=== PATIENT | male | born 1945 | race Caucasian/White ===

== ENCOUNTER 2017-03-08 14:40 | Emergency (ER) | payer MEDICARE, OTHER ==
[~2017-03-08] VITALS: Ht 175.3 cm; Wt 95.0 kg
[~2017-03-08 14:40] MED LIST: ASPI81TA2 PO; LOVA40TA PO
[2017-03-08 14:56] VITALS: BP 138/77; PULSE 72; RESP 16; O2SAT 97
--- NOTE | 2017-03-08 16:36 | ED.REPORT ---
HPI-URI / Cough / Cold Date of Service March 08, 2017 ED Provider: Sima Barbosa History of Present Illness: feeling good right now. had some nausea with loss of balance earlier around 1 pm today. Slight cough. almost lost voice for a week. ears clogged marcelino right. no hx of cardiac issue. primary care is miguel in [place]. denies sob, no chest pain was seen at and given a zpak and OTC medication Nursing Notes Stated Complaint: VOMITING Chief Complaint: General Complaint Nursing Notes Reviewed: Yes Allergies: Coded Allergies: hydrocodone bitartrate (Verified Allergy, Intermediate, 04/04/13) Scheduled Aspirin-Expunged Drug, Do Not Renew! (Aspirin-Expunged Drug, Do Not Renew!) 81 Mg Tablet 81 MG PO DAILY Miscellaneous Medications Lovastatin-Expunged Drug, Do Not Renew! (Lovastatin-Expunged Drug, Do Not Renew! ) 40 Mg Tablet 40 MG PO General Time Seen by MD: 16:35 Chief Complaint Cough, productive... (none for the last 2 days) Hx Obtained From: Patient Onset Occurred: 1 week ago Symptom Duration: Since onset Past Medical History Past Medical History Reports: Hyperlipidemia, Denies: Asthma Past Surgical History right hip replacement Family History older brother had an [place] Smoking History Never Smoker Social History Alcohol Use: Denies alcohol use Drug Use: Denies drug use Other Social History: Local resident Occupation lives by self, work at at [employer] 03/08/2017 Ambulatory Status Independent Review of Systems Basic Review of Systems Cardiovascular: No chest pain, No dyspnea on exertion, No orthopnea, No parox noct dyspnea, No palpitations Hematologic: No bleeding, No bruising Psychiatric: Normal thought content Physical Exam Initial Vital Signs Vital Signs (First) Date Time Temp Pulse Resp B/P Pulse Ox O2 Delivery O2 Flow Rate FiO2 03/08/17 14:56 36.2 72 16 138/77 97 Room Air Initial VS: Reviewed, Vital signs normal Head / Eyes: Atraumatic, Normocephalic, PERRL Neck: Supple, Non-tender, Full range of motion Cardiovascular: Regular rate & rhythm, Heart sounds normal, Intact distal pulses Abdomen / GI: Soft, Non-tender, No guarding, No rebound, No distention Back: No CVA tenderness Lymphatic: No lymphadenopathy Extremities: Vascular intact, Neuro intact, No swelling, No tenderness Skin: Warm, Dry, No cyanosis Neurologic: Alert, Oriented, Nonfocal Psychiatric: Mood/affect normal, Behavior normal, Normal thought content General/Constitutional: Awake, Alert, No acute distress, Well appearing, Well developed, Well hydrated ENT: Atraumatic, Airway patent, Mucous membranes moist, Pharynx NL, No peritonsillar abscess Respiratory / Chest: Atraumatic, Breath sounds NL, Breath sounds = bilat Head / Eyes: Atraumatic, Normocephalic, PERRL, EOMI Cardiovascular: Heart rate NL, Regular rhythm, Heart sounds NL, No gallop, No murmurs, No rubs Abdomen: Atraumatic, Soft, Non-tender, McBurney's non-tender Interpretation & Diagnostics Lab Results Interpretation Result Diagram: 03/08/175 03/08/17 1655 Test 03/08/17 16:55 White Blood Count 14.8th/mm3 (3.8-10.1) Red Blood Count 4.72mil/mm3 (4.40-5.80) Hemoglobin 14.0g/dL (13.8-17.2) Hematocrit 41.9% (41.0-50.0) Mean Corpuscular Volume 88.8fL (81-100) Mean Corpuscular Hemoglobin 29.7pg (27.0-35.0) Mean Corpuscular Hemoglobin Concent 33.4% (32.0-37.0) Red Cell Distribution Width 13.5% (12.3-15.4) Platelet Count 269bil/L (150-400) Neutrophils (%) (Auto) 91.9% (40-74) Lymphocytes (%) (Auto) 4.7% (14-46) Monocytes (%) (Auto) 2.9% (4-12) Eosinophils (%) (Auto) 0.1% (0-5) Basophils (%) (Auto) 0.1% (0-3) Sodium Level 138mEq/L (134-144) Potassium Level 4.6mEq/L (3.5-5.2) Chloride Level 100mEq/L (97-108) Carbon Dioxide Level 24mmol/L (18-29) Blood Urea Nitrogen 19mg/dL (8-27) Creatinine 0.79mg/dL (0.76-1.27) Estimat Glomerular Filtration Rate 103mL/min (>59) Glucose Level 131mg/dL (60-99) Calcium Level 9.8mg/dL (8.5-10.1) Total Bilirubin 0.6mg/dL (0.0-1.2) Aspartate Amino Transf (AST/SGOT) 64U/L (0-50) Alanine Aminotransferase (ALT/SGPT) 37U/L (0-44) Alkaline Phosphatase 67U/L (25-160) Troponin T < 0.010ug/L (0.0-0.011) Total Protein 7.5g/dL (6.4-8.4) Albumin 4.4g/dL (3.4-5.0) Hold Mejía Top Tube Received (Received) Lab Results Interpretation: EKG normal X-Ray Chest Interpretation Chest Xray Interpretation: PROCEDURE: X-RAY CHEST, TWO VIEWS ([id number]) INDICATIONS: cough TECHNIQUE: 2 views of the chest were acquired. COMPARISON: [facility], , CHEST 2 VIEW, 12/20/2015, 11:20. FINDINGS: Surgical changes and devices: None. Lungs and pleura: No pleural effusions or pneumothorax. Lungs are clear. Mediastinum: Mediastinal contours are normal. Heart size is normal. Bones and chest wall: No suspicious bony abnormalities. Soft tissues appear unremarkable. IMPRESSION: No acute process. Dictated by: Mike Montana M.D. on 03/08/2017 at 17:26 Approved by: Mike Montana M.D. on 03/08/2017 at 17:26 Re-Eval/Medical Decision Med Decision/Clinical Course Med Decision/Clinical Course: 71 year old male presents to the ER for evualation of 1 episode of vomiting with dizziness earlier today. Both of his ears are plugged with his recent cold. finished zpak yesterday. Reports feeling better at this time. No sign of any cardiac issue or pneumonia. Discharge & Departure Impression: Primary Impression: Upper respiratory symptom Disposition: Home Patient Instructions: Upper Respiratory Infection (GEN) Additional Instructions: The chest x-ray is normal. Your EKG is normal. Your labs show an elevation in WBC 14. Your troponin is normal, no sign of a cardiac event. . As you just finished a course of antibiotics, need to give it sone time. Continue with the OTC medications that have been suggested previously. REturn with any concerns. Referrals: Geno Miguel MD (PCP) EDSupervising Provider for APC: Paul Beal DO copies to: Geno Miguel MD, Sue ARNP March 08, 2017 16:36
[2017-03-08 17:05] LABS: BASOPHILS % (AUTO) 0.1 % (0-3); EOSINOPHILS % (AUTO) 0.1 % (0-5); MONOCYTES % (AUTO) 2.9 % (4-12); Mean Corpuscular Hemoglobin 29.7 pg (27.0-35.0); Mean Corpuscular Volume 88.8 fL (81-100); NEUTROPHILS % (AUTO) 91.9 % (40-74); Platelet Count 269 bil/L (150-400)
[2017-03-08 17:08] VITALS: BP 124/72; PULSE 77; O2SAT 99
--- NOTE | 2017-03-08 17:27 | DRSVH ---
PROCEDURE: X-RAY CHEST, TWO VIEWS ([id number]) INDICATIONS: cough TECHNIQUE: 2 views of the chest were acquired. COMPARISON: [facility], , CHEST 2 VIEW, 12/20/2015, 11:20. FINDINGS: Surgical changes and devices: None. Lungs and pleura: No pleural effusions or pneumothorax. Lungs are clear. Mediastinum: Mediastinal contours are normal. Heart size is normal. Bones and chest wall: No suspicious bony abnormalities. Soft tissues appear unremarkable. IMPRESSION: No acute process. Dictated by: Mike Montana M.D. on 03/08/2017 at 17:26 Approved by: Mike Montana M.D. on 03/08/2017 at 17:26
[2017-03-08 17:40] LABS: TROPONIN T < 0.010 ug/L (0.0-0.011)
[2017-03-08 18:50] VITALS: BP 122/75; PULSE 80
== END 2017-03-08 18:52 | disposition home or self-care (01) ==
LOC: SED 14:40
DX: R09.89 Other specified symptoms and signs involving the circulatory and respiratory systems (principal); E78.5 Hyperlipidemia, unspecified; Z79.82 Long term (current) use of aspirin; Z88.5 Allergy status to narcotic agent